=== PATIENT | male | born 1965 | race Caucasian/White ===

== ENCOUNTER 2017-10-26 09:03 | Observation (INO) | payer OTHER ==
[~2017-10-26] VITALS: Ht 157.5 cm; Wt 93.8 kg
[~2017-10-26 09:03] MED LIST: ZANTAC150 MG PO; ZESTRIL,PRINIVIL5 MG PO
[2017-10-26 10:19] LABS: HEMATOCRIT 40.4 % (38.0-50.0); HEMOGLOBIN 13.8 G/DL (12.5-16.6); MCH 31.1 PG (29.0-34.0); MCHC 34.2 G/DL (30.0-36.0); PLATELET COUNT 228 K/uL (156-360); RBC DIS.WIDTH-CV 13.1 % (11.8-14.6); RBC DIS.WIDTH-SD 43.5 % (39-53); RED BLOOD COUNT 4.44 M/uL (4.00-5.50); WHITE BLOOD COUNT 8.1 K/uL (4.1-10.2)
[2017-10-26 10:27] LABS: CHLORIDE 108 mEq/L (99-109); POTASSIUM 4.4 mEq/L (3.7-5.4); SODIUM 139 mEq/L (136-147)
[2017-10-26 10:29] LABS: GLUCOSE 133 mg/dL (70-99)
[2017-10-26 10:33] LABS: CREATININE 0.9 mg/dL (0.6-1.3); GFR ESTIMATE (CALCULATED) > 59 mL/min/ (58.99-99999)
[2017-10-26 10:34] LABS: UREA NITROGEN (BUN) 11 mg/dL (9-23)
[2017-10-26 10:48] LABS: PTT 27.5 SEC (25-37)
[2017-10-26 13:16] VITALS: BP 119/67
== END 2017-10-26 13:16 | disposition home or self-care (01) ==
LOC: EME 09:03 → EDOF 12:58 → ENRESERV 12:59 → EDOF 13:16 → ENRESERV 14:43
PROVIDERS: Emergency Medicine
DX: K62.5 Hemorrhage of anus and rectum (principal); Z86.718 Personal history of other venous thrombosis and embolism; Z79.01 Long term (current) use of anticoagulants; Z79.02 Long term (current) use of antithrombotics/antiplatelets; R10.9 Unspecified abdominal pain; R51 Headache; E78.5 Hyperlipidemia, unspecified; I10 Essential (primary) hypertension; K21.9 Gastro-esophageal reflux disease without esophagitis; F10.10 Alcohol abuse, uncomplicated; Z90.49 Acquired absence of other specified parts of digestive tract; F17.200 Nicotine dependence, unspecified, uncomplicated
CPT/HCPCS: 74177; 80048; 85027; 85610; 85730; 86850; 86900; 86901; 99281; 99285; G0378; J7030